=== PATIENT | male | born 1955 | race Caucasian/White ===

== ENCOUNTER 2017-02-06 09:21 | Emergency (ER) | payer BC, SELFPAY | END 2017-02-06 10:12 | disposition home or self-care (01) | PROVIDERS: Emergency Provider Nurse Practitioner Family; Family Provider Family Medicine; Visit Provider Nurse Practitioner Family | DX: J06.9 Acute upper respiratory infection, unspecified (principal) | CPT/HCPCS: 87804; 96372; 99201 ==

== ENCOUNTER 2017-03-04 19:40 | Emergency (ER) | payer BC, SELFPAY ==
[2017-03-04 19:52] VITALS: BP 165/102; PULSE 91; RESP 18; TEMP 36.9; O2SAT 97; BMI 34.9
--- NOTE | 2017-03-04 19:59 | HMH.EDUTC ---
[facility] Disposition Clinical Impression: Post-nasal drainage Disposition: Home, Self-Care Condition on Discharge: Good Instructions: DI for Cough -- Adult Additional Instructions: Take BP meds as prescribed Prescriptions: Fluticasone Propionate [Flonase Allergy Relief NS] 1 spray NS BID 10 Days #1 bot methylPREDNISolone [Medrol] 4 mg PO DIRECTED 6 Days #1 tab.ds.pk Benzonatate [Tessalon Perle 100mg Cap] 200 mg PO TIDP PRN 10 Days #30 cap PRN Reason: Cough Referrals: Bo Momin MD [Primary Care Provider] - Time of Disposition: 20:08 Medical Decision Making - Medical Records Medical records reviewed: Yes: I reviewed the patient's medical records. Vital Signs: 03/04/17 19:52 Temperature 98.4 F Temperature Source Temporal Artery Scan Pulse Rate [Brachial] 91 H Respiratory Rate 18 Blood Pressure [Right Arm] 165/102 Blood Pressure Mean [Right Arm] 123 Blood Pressure Source [Right Arm] Automatic Cuff Blood Pressure Position [Right Arm] Sitting 02 Sat by Pulse Oximetry 97 Oxygen Delivery Method Room Air - Ryan Inquiry Pt receiving controlled substance: No [facility] HPI - General Stated complaint: cough,cogestion Time Seen by Provider: 03/04/17 19:59 Mode of Arrival: Ambulatory Source of Information: Patient Limitations: No Limitations Description of Symptoms (Recalled from Triage Doc. by RN): COUGH AND CONGESTION SINCE 02/07/17 HEENT Symptoms (Recalled from RN notes): No Resp Symptoms (Recalled from RN notes): Yes Skin Symptoms (Recalled from RN notes): No MS Symptoms (Recalled from RN notes): No Functional Status (Recalled from RN notes): NA - History of Present Illness Provider Complaint: Patient has had cough for about 3 weeks. Has had steroid shot, antibiotics, Bromfed. Cough productive at times. No fever. Uses Cpap - increased humidity and that did seem to help a little. Mucinex hasn't done much. No vomiting. Has coughed so much that his ribs are sore. Onset (ago): week(s) (3) Location: chest Relieving factors: none Exacerbating factors: none Associated symptoms: cough, malaise Treatments prior to arrival: none - Related Data Home Medications Medication Instructions Recorded Confirmed Fenofibric Acid (Choline) 135 mg PO DAILY 01/19/18 01/19/18 [Fenofibric Acid] Perindopril Erbumine [Perindopril 8 mg PO DAILY 03/04/17 03/04/17 Erbumine] Simvastatin [Simvastatin] 40 mg PO DAILY 03/04/17 03/04/17 hydroCHLOROthiazide [HCTZ 25mg 25 mg PO DAILY 03/04/17 03/04/17 tab] Previous Rx's Medication Instructions Recorded Benzonatate [Tessalon Perle 100mg 200 mg PO TIDP PRN 10 Days #30 cap 03/04/17 Cap] Fluticasone Propionate [Flonase 1 spray NS BID 10 Days #1 bot 03/04/17 Allergy Relief NS] methylPREDNISolone [Medrol] 4 mg PO DIRECTED 6 Days #1 03/04/17 tab.ds.pk Allergies Allergy/AdvReac Type Severity Reaction Status Date / Time Penicillins [PENICILLINS] Allergy Mild Verified 03/04/17 19:54 Sulfa (Sulfonamide Allergy Mild Verified 03/04/17 19:54 Antibiotics) [SULFA (SULFONAMIDE ANTIBIOTICS)] - Worker's Comp Is this a Worker's Comp case?: No H History I have reviewed the patient's past medical history: Yes - *Social History Alcohol Intake: never - Psychiatric History Expresses thoughts of harming self/others: None Suicide Plan Description: No Plan ROS Obtained: Yes All systems reviewed & no additional complaints - Respiratory Respiratory: Yes cough Physical Exam - General General appearance: alert, in no apparent distress - Head Head exam: atraumatic, normocephalic, normal inspection - Eye Eye exam: Present: normal appearance, PERRL, EOMI - ENT ENT exam: Present: normal exam, normal oropharynx, mucous membranes moist, TM's normal bilaterally, normal external ear exam - Expanded ENT Exam Throat exam: Present: other (post nasal drip) - Neck Neck exam: Present: normal inspection, full ROM, trachea m
--- NOTE | 2017-03-04 20:05 | ED_ITS ---
[facility] Dis[place] Clinical Impression: Post-nasal drainage Disposition: Home, Self-Care Condition on Discharge: Good Instructions: DI for Cough -- Adult Additional Instructions: Take BP meds as prescribed Prescriptions: Fluticasone Propionate [Flonase Allergy Relief NS] 1 spray NS BID 10 Days #1 bot methylPREDNISolone [Medrol] 4 mg PO DIRECTED 6 Days #1 tab.ds.pk Benzonatate [Tessalon Perle 100mg Cap] 200 mg PO TIDP PRN 10 Days #30 cap PRN Reason: Cough Referrals: Bo Momin MD [Primary Care Provider] - Time of Disposition: 20:08 Medical Decision Making - Medical Records Medical records reviewed: Yes: I reviewed the patient's medical records. Vital Signs: 03/04/17 19:52 Temperature 98.4 F Temperature Source Temporal Artery Scan Pulse Rate [Brachial] 91 H Respiratory Rate 18 Blood Pressure [Right Arm] 165/102 Blood Pressure Mean [Right Arm] 123 Blood Pressure Source [Right Arm] Automatic Cuff Blood Pressure Position [Right Arm] Sitting 02 Sat by Pulse Oximetry 97 Oxygen Delivery Method Room Air - Ryan Inquiry Pt receiving controlled substance: No [facility] HPI - General Stated complaint: cough,cogestion Time Seen by Provider: 03/04/17 19:59 Mode of Arrival: Ambulatory Source of Information: Patient Limitations: No Limitations Description of Symptoms (Recalled from Triage Doc. by RN): COUGH AND CONGESTION SINCE 02/07/17 HEENT Symptoms (Recalled from RN notes): No Resp Symptoms (Recalled from RN notes): Yes Skin Symptoms (Recalled from RN notes): No MS Symptoms (Recalled from RN notes): No Functional Status (Recalled from RN notes): NA - History of Present Illness Provider Complaint: Patient has had cough for about 3 weeks. Has had steroid shot, antibiotics, Bromfed. Cough productive at times. No fever. Uses Cpap - increased humidity and that did seem to help a little. Mucinex hasn't done much. No vomiting. Has coughed so much that his ribs are sore. Onset (ago): week(s) (3) Location: chest Relieving factors: none Exacerbating factors: none Associated symptoms: cough, malaise Treatments prior to arrival: none - Related Data Home Medications Medication Instructions Recorded Confirmed Fenofibric Acid (Choline) 135 mg PO DAILY 01/19/18 01/19/18 [Fenofibric Acid] Perindopril Erbumine [Perindopril 8 mg PO DAILY 03/04/17 03/04/17 Erbumine] Simvastatin [Simvastatin] 40 mg PO DAILY 03/04/17 03/04/17 hydroCHLOROthiazide [HCTZ 25mg 25 mg PO DAILY 03/04/17 03/04/17 tab] Previous Rx's Medication Instructions Recorded Benzonatate [Tessalon Perle 100mg 200 mg PO TIDP PRN 10 Days #30 cap 03/04/17 Cap] Fluticasone Propionate [Flonase 1 spray NS BID 10 Days #1 bot 03/04/17 Allergy Relief NS] methylPREDNISolone [Medrol] 4 mg PO DIRECTED 6 Days #1 03/04/17 tab.ds.pk Allergies Allergy/AdvReac Type Severity Reaction Status Date / Time Penicillins [PENICILLINS] Allergy Mild Verified 03/04/17 19:54 Sulfa (Sulfonamide Allergy Mild Verified 03/04/17 19:54 Antibiotics) [SULFA (SULFONAMIDE ANTIBIOTICS)] - Worker's Comp Is this a Worker's Comp case?: No [facility] History I have reviewed the patient's past medical history: Yes - *Social History A
== END 2017-03-04 20:10 | disposition home or self-care (01) ==
PROVIDERS: Emergency Provider Physician Assistant; Family Provider Family Medicine; PCP Family Medicine
DX: R05 Cough (principal); R09.81 Nasal congestion; Z88.0 Allergy status to penicillin; Z88.2 Allergy status to sulfonamides
CPT/HCPCS: 99202

== ENCOUNTER 2017-11-28 15:30 | Outpatient (RCR) | payer BC, SELFPAY | END 2017-11-28 15:31 | disposition home or self-care (01) | LOC: PT 15:30 | PROVIDERS: Visit Provider Podiatrist Foot & Ankle Surgery | DX: M72.2 Plantar fascial fibromatosis (principal) | CPT/HCPCS: 97010; 97014; 97033; 97035; 97110; 97140; 97163; G0283 ==

== ENCOUNTER 2018-03-01 15:00 | Outpatient (RCR) | payer BC, SELFPAY | END 2018-03-01 15:05 | disposition home or self-care (01) | LOC: PT 15:00 | PROVIDERS: Visit Provider Podiatrist Foot & Ankle Surgery | DX: M72.2 Plantar fascial fibromatosis (principal) | CPT/HCPCS: 97014; 97016; 97110; 97112; 97140; 97163; G0283 ==

== ENCOUNTER 2019-12-18 13:15 | Emergency (ER) | payer BC, SELFPAY ==
[2019-12-18] VITALS (11 sets, daily range): BP systolic 113–152; BP diastolic 65–88; PULSE 61–76; RESP 17–18; TEMP 37.1; O2SAT 95–98; BMI 31.4
--- NOTE | 2019-12-18 13:23 | XR_ITS ---
PROCEDURE: XR CHEST AP CLINICAL HISTORY: fall COMPARISON: CR CXR CHEST(2 VIEWS-NOT PORTABLE) from 06/06/[address] CHEST W/ CONTRAST from 06/21/2013 FINDINGS: This is a somewhat poor inspiratory effort. The lung aragon appear grossly clear of infiltrate. There may be minimal atelectasis at the right base. Cardiac size is difficult to evaluate due to the portable supine position and poor inspiration but there likely is borderline cardiomegaly. There is no pulmonary congestion and there is no definite pleural fluid. There is an old healed fracture left lateral clavicle. IMPRESSION: No acute findings. Dictated by: Dr. Matthieu Bates MD 12/18/2019 14:05 Dr. Matthieu Bates MD in [place] 12/18/2019 14:05
--- NOTE | 2019-12-18 13:23 | XR_ITS ---
PROCEDURE: XR PELVIS 1-2V CLINICAL INDICATION: fall COMPARISON: No exams were available for comparison TECHNIQUE: XR Pelvis AP View FINDINGS: No fracture or dislocation is evident. No significant degenerative change, there is mild asymmetrical joint space narrowing of both hips. No lytic or blastic change. The SI joints and symphysis pubis appear normal. IMPRESSION: No acute findings. Dictated by: Dr. Matthieu Bates MD 12/18/2019 14:03 Dr. Matthieu Bates MD in [place] 12/18/2019 14:03
--- NOTE | 2019-12-18 13:28 | CT_ITS ---
PROCEDURE: CT LUMBAR SPINE WO CON CLINICAL HISTORY: trauma Fell off a ladder 4-5 feet COMPARISON: No exams were available for comparison TECHNIQUE: Axial images obtained with sagittal and coronal reformats. All CT scans at the facility use one or more dose reduction, viz: automated exposure control, ma/kV adjustment per patient size (including targeted exams where dose is matched to indication, i.e. head), or iterative reconstruction technique. FINDINGS: There is straightening of the normal curvature. There is a comminuted compression fracture of L1 with approximately 50 percent loss of height of the main fracture components. There is retropulsion of the compression fracture compromising the spinal canal by 40-50 percent. There is a vertical fracture through the lamina right-side of L1. The transverse processes appear intact through the entire lumbar spine. The SI joints are normal. All the remaining lumbar vertebrae appear intact. The spinal canal otherwise appears normal in size throughout. There is a mild diffuse disc bulge L5-S1 but there is abundant space and the spinal canal at this level. There is mild diffuse bulging of the annulus fibrosus at the L3-4 and L4-5 levels. The L2-3 disc appears normal. IMPRESSION: Acute comminuted compression fracture of L1 with retropulsion of the posterior fracture fragment compromising the spinal canal AP diameter approximately 40 to 50 percent. Dictated by: Dr. Matthieu Bates MD 12/18/2019 13:59 Dr. Matthieu Bates MD in [place] 12/18/2019 13:59
--- NOTE | 2019-12-18 13:28 | PC.NURSE ---
Patient's family educated on visitor policy at this time. State all three will be staying in the room no matter what.
--- NOTE | 2019-12-18 13:31 | HMH.EDBACK ---
ED Disposition Clinical Impression: Traumatic compression fracture of L1 lumbar vertebra Qualifiers: Encounter type: initial encounter Fracture type: closed Qualified Code(s): S32.010A - Wedge compression fracture of first lumbar vertebra, initial encounter for closed fracture Disposition: Xfer Critical Access Hosp Condition on Discharge: Fair Instructions: DI for Low Back Pain Referrals: Bo Momin MD [Primary Care Provider] - - Critical Care Critical Care Time: No Attestation: On 12/18/19, the high probability of a clinically significant, sudden or life threatening deterioration of the following system(s) required my full and direct attention, intervention and personal management. The time I documented below is in addition to time spent performing reported procedures but includes the following listed in this critical care notation. Medical Decision Making - Medical Records Medical records reviewed: Yes: I reviewed the patient's medical records. - Ryan Inquiry Pt receiving controlled substance: Yes Ryan was queried for this patient: No Reason not queried -: Emergent pt cond-no time Risks and benefits of using a controlled substance: were discussed with pt by me Vital Signs: 12/18/19 13:15 12/18/19 13:17 12/18/19 14:17 Pulse Rate [Right Brachial] 65 67 61 Respiratory Rate 18 17 Blood Pressure [Right Arm] 135/74 130/71 133/78 Blood Pressure Mean [Right Arm] 94 90 96 Blood Pressure Source [Right Arm] Automatic Cuff Automatic Cuff Automatic Cuff Blood Pressure Position [Right Arm] Sitting Sitting Sitting 02 Sat by Pulse Oximetry 96 98 95 Oxygen Delivery Method Room Air Room Air Room Air 12/18/19 14:30 12/18/19 15:00 12/18/19 15:31 Pulse Rate [Right Brachial] 66 74 65 Respiratory Rate 18 18 17 Blood Pressure [Right Arm] 127/68 123/74 139/82 Blood Pressure Mean [Right Arm] 87 90 101 Blood Pressure Source [Right Arm] Automatic Cuff Automatic Cuff Blood Pressure Position [Right Arm] Sitting Sitting 02 Sat by Pulse Oximetry 97 96 97 Oxygen Delivery Method Room Air Room Air Room Air - Lab Data Lab Results 12/18/19 14:58: WBC 12.8 H, RBC 5.53, Hgb 17.1, Hct 50.9, MCV 91.9, MCH 30.8, MCHC 33.5, RDW 14.0, Plt Count 262, MPV 7.4, Neut % (Auto) 82.4 H, Lymph % (Auto) 11.2, Wilkinson % (Auto) 5.4, Eos % (Auto) 0.8, Baso % (Auto) 0.3, Neut # (Auto) 10.6 H, Lymph # (Auto) 1.4, Wilkinson # (Auto) 0.7, Eos # (Auto) 0.1, Baso # (Auto) 0.0 12/18/19 14:58: PT 11.3, INR 1.02, APTT 24.0 12/18/19 14:58: Sodium 137, Potassium 4.2, Chloride 101, Carbon Dioxide 30, Anion Gap 10.2, BUN 18, Creatinine 0.90, Estimated Creat Clear 102, Estimated GFR 86, Est GFR ( Amer) 103, Glucose 99, Calcium 9.5, Total Bilirubin 0.5, AST 43, ALT 36, Alkaline Phosphatase 69, Total Protein 7.1, Albumin 4.4, Globulin 2.7, Albumin/Globulin Ratio 1.6 Result diagrams: 12/18/19 14:58 12/18/19 14:58 Orders (Tests/Meds): ED MEDICATIONS Discontinued Medications Generic Name Dose Route Start Last Admin Trade Name Freq PRN Reason Stop Dose Admin Hydrocodone Bitart/Acetaminophen 1 tab 12/18/19 13:29 12/18/19 13:32 Hydrocodone 10mg/Apap 325mg Tab PO 12/18/19 13:30 1 tab ONCE ONE Administration Hydromorphone HCl 1 mg 12/18/19 15:38 12/18/19 15:43 Hydromorphone 2mg/Ml Syringe IV 12/18/19 15:39 1 mg ONCE ONE Administration Morphine Sulfate 4 mg 12/18/19 14:35 12/18/19 14:43 Morphine 4mg/Ml Syringe IV 12/18/19 14:36 4 mg ONCE ONE Administration - Radiology Data #1 Image(s): Chest, Pelvis Image Reviewed: Yes I reviewed the patient's radiology results, Yes I reviewed the patient's radiology image, Yes I have reviewed radiologist's interpretation Preliminary Findings: Normal/NAD, No Fracture Seen - CT Data CT Scan: T-Spine, L-Spine Time Received: 15:[address] Reviewed: Yes: I have reviewed the patient's CT results, I have viewed the radiologist's interpretation Findings Narrative: IMPRESSION:
--- NOTE | 2019-12-18 13:45 | CT_ITS ---
PROCEDURE: CT THORACIC SPINE WO CON CLINICAL HISTORY: pain from fall. Fell off a ladder 4-5 feet COMPARISON: No exams were available for comparison TECHNIQUE: Axial images obtained with sagittal and coronal reformats. All CT scans at the facility use one or more dose reduction, viz: automated exposure control, ma/kV adjustment per patient size (including targeted exams where dose is matched to indication, i.e. head), or iterative reconstruction technique. FINDINGS: There is mild diffuse dextroscoliotic curvature of the thoracic spine. All thoracic vertebrae appear intact. 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 There is no paraspinal mass. The spinal canal is normal in size throughout. IMPRESSION: Mild diffuse dextroscoliotic curvature along with congenital fusion of T6 and T7, no acute compression fracture identified Dictated by: Dr. Matthieu Bates MD 12/18/2019 14:02 Dr. Matthieu Bates MD in [place] 12/18/2019 14:02
--- NOTE | 2019-12-18 13:57 | PC.NURSE ---
Patient taken to radiology.
--- NOTE | 2019-12-18 13:58 | PC.NURSE ---
Patient returned from radiology.
[2019-12-18 15:07] LABS: Basophils % 0.3 % (0.1-2.0); Eosinophils # 0.1 K/mm3 (0.0-0.4); Eosinophils % 0.8 % (0.1-12.0); Hematocrit 50.9 % (42.0-52.0); Hemoglobin 17.1 g/dL (14.1-18.0); Lymphocytes # 1.4 K/mm3 (0.7-4.5); Lymphocytes % 11.2 % (10-50); Mean Corpuscular HGB Conc 33.5 g/dL (31.8-35.4); Mean Corpuscular Hemoglobin 30.8 pg (27.0-31.2); Mean Corpuscular Volume 91.9 fl (80-94); Mean Platelet Volume 7.4 fl (7.4-10.4); Monocytes # 0.7 K/mm3 (0.1-1.0); Monocytes % 5.4 % (1.7-9.3); Neutrophils # 10.6 K/mm3 (1.8-7.8); Neutrophils % 82.4 % (37.0-80.0); Platelet Count 262 K/mm3 (142-424); Red Blood Count 5.53 M/mm3 (4.60-6.20); White Blood Count 12.8 K/mm3 (4.8-10.8)
[2019-12-18 15:09] LABS: Chloride 101 mmol/L (98-107); Sodium 137 mmol/L (136-145)
--- NOTE | 2019-12-18 15:09 | PC.NURSE ---
Call placed to [facility]. Awaiting a return call.
[2019-12-18 15:10] LABS: Potassium 4.2 mmoL/L (3.5-5.1)
[2019-12-18 15:12] LABS: Alanine Aminotransferase 36 U/L (12-78); Albumin Level 4.4 g/dl (3.5-5.0); Albumin/Globulin Ratio 1.6 (1.1-1.8); Alkaline Phosphatase 69 U/L (38-126); Anion Gap 10.2 mEq/L (5-15); Aspartate Amino Transferase 43 U/L (17-59); Bilirubin,Total 0.5 mg/dl (0.2-1.3); Blood Urea Nitrogen 18 mg/dl (9-20); Carbon Dioxide 30 mmol/L (22.0-30.0); Creatinine Clearance Estimated 102 mL/min (50-200); Estimated Glomerular Filt Rate 86 ml/min (>60); GFR (African American) 103 ML/MIN (>60); Globulin 2.7 g/dL (1.3-3.2); Total Protein,Serum 7.1 g/dl (6.3-8.2)
[2019-12-18 15:13] LABS: Calcium 9.5 mg/dl (8.4-10.2); Glucose 99 mg/dl (74-100)
[2019-12-18 15:32] LABS: INR 1.02 (0.9-1.1); Prothrombin Time 11.3 seconds (9.4-11.8)
--- NOTE | 2019-12-18 15:36 | PC.NURSE ---
[facility] pt
--- NOTE | 2019-12-18 16:41 | PC.NURSE ---
FACE SHEET FAXED, [facility] ADVISES THAT THEY HAVE 2 DISCHARGES ON THE ORTHO FLOOR THEY WILL CALL BACK WITH BED ASSIGNMENT
== END 2019-12-18 19:15 | disposition critical access hospital (66) ==
PROVIDERS: Emergency Provider Emergency Medicine; PCP Family Medicine
DX: S32.010A Wedge compression fracture of first lumbar vertebra, initial encounter for closed fracture (principal); S50.812A Abrasion of left forearm, initial encounter; W11.XXXA Fall on and from ladder, initial encounter; Y92.019 Unspecified place in single-family (private) house as the place of occurrence of the external cause; E78.5 Hyperlipidemia, unspecified; Z79.899 Other long term (current) drug therapy
CPT/HCPCS: 71045; 72128; 72131; 72170; 80053; 85025; 85610; 85730; 96372; 99284

== ENCOUNTER 2020-02-14 14:00 | Outpatient (RCR) | payer BC, SELFPAY | END 2020-02-14 14:05 | disposition home or self-care (01) | LOC: PT 14:00 | PROVIDERS: PCP Family Medicine; Visit Provider Neurological Surgery | DX: M54.5 Low back pain (principal) | CPT/HCPCS: 97010; 97014; 97110; 97163; 97164; G0283 ==

== ENCOUNTER → 2022-02-09 10:49 | Outpatient (CLI) | payer BC, SELFPAY ==
--- NOTE | 2022-02-09 | CA_ITS ---
APPROVED REPORT Exam: Exercise Treadmill Technologist: Kaylyn Edwards Ht: 5 ft 8 in Wt: 220 lbs BSA: 2.13 m2 HR: 70 bpm BP: 150/98 mmHg Indications: Abn EKG Medical History Medications: Simvastatin,,,,, HCTZ,,,,, PERINDOPRIL,,,,, CetIRIZINE,,,,, DOcusate Sodium,,,,, FeNOfibric Acid,,,,, Stress Test Details Test: Tip HR Resting HR: 69 bpm Max Heart Rate (APMHR): 156.660475 bpm Max HR Achieved: 145 bpm Target HR (85% APMHR): 132.225447 bpm % of APMHR: 92.95 Recovery HR: 94 bpm BP Resting BP: 150.0/98.0 mmHg Max BP: 220.0/90.0 mmHg Recovery BP: 176.0/95.0 mmHg ECG Resting ECG: Normal sinus rhythm Clinical Exercise duration: 10:30 min Highest Stage Achieved: Exercise capacity: 12.8 METs Stress ECG Conclusion Patient exercised 10:30 into stage IV of Tip Protocol. Test stopped due to shortness of air, fatigue. Symptoms: No chest pain. Arrhythmias/Ectopy: Occasional PVC ST- T Changes: Allowing for motion artifact, the ST response to exercise is within normal. Conclusion: Normal GXT. Myoview images reported separately. Test Summary REST . . . . . . . Sitting REST . . . . . . . Standing REST 05:54 0.0 0.0 69 . 150/ 98 . . Stage 1 01:00 10.0 1.7 91 . . . . Stage 1 02:00 10.0 1.7 93 . . . . Stage 1 03:00 10.0 1.7 99 . 214/ 96 . . Stage 2 01:00 12.0 2.5 103 . . . . Stage 2 02:00 12.0 2.5 103 . . . . Stage 2 03:00 12.0 2.5 110 . 216/ 98 . . Stage 3 01:00 14.0 3.4 118 . . . . Stage 3 02:00 14.0 3.4 120 . . . . Stage 3 03:00 14.0 3.4 125 . 220/ 90 . . Stage 4 . . . . . . . Myoview Injected Stage 4 01:00 16.0 4.2 141 . . . . Stage 4 01:30 16.0 4.2 145 . . . Stop exercise at 10:30 RECOVERY 01:00 0.0 0.0 130 . . . . RECOVERY 02:00 0.0 0.0 108 . . . . RECOVERY 03:00 0.0 0.0 102 . 196/ 97 . . RECOVERY 04:00 0.0 0.0 99 . 185/ 95 . . RECOVERY 05:00 0.0 0.0 95 . 185/ 95 . . RECOVERY 06:00 0.0 0.0 93 . 183/ 94 . . RECOVERY 07:00 0.0 0.0 96 . 176/ 95 . . RECOVERY 08:00 0.0 0.0 93 . 176/ 95 . . RECOVERY 08:52 0.0 0.0 93 . 146/ 84 . . Electronically signed by : Chapin Canchola MD 02/09/2022 15:55:51
--- NOTE | 2022-02-09 10:49 | NM_ITS ---
APPROVED REPORT Exam: Nuclear Stress Test Indication: Abnormal EKG, SOB on exertion, HTN, High cholesterol, Family history Patient Location: Outpatient Stress Tech: Kaylyn Edwards [place] Tech:Dulce Bingham, ARRT, RT (R)(N) Ht: 5 ft 8 in Wt: 220 lbs HR: 69 bpm BP: 150/98 mmHg BSA: 2.13 m2 TID: 0.79 BMI: 33.4 History: Abnormal EKG, SOB on exertion, HTN, High cholesterol, Family history Procedure: Patient exercised on Tip protocol 10:30 minutes and sec, resting heart rate 69 bpm, resting blood pressure 150/98 mmHg, with exercise maximum heart rate achived was 145 bpm which is 93 % of the maximum predicted heart rate and blood pressure was 220/90 mmHg. Test was stopped due to SOB. Patient denied any complaint of chest pain. Patient has Good exercise capacity, achieved 12.8 METs of workload on treadmill, the blood pressure response to exercise was Hypertensive. Electrocardiogram Resting electrocardiogram shows sinus rhythm, with exercise there is less than 1.[address] segment depression noted from the baseline EKG. The EKG portion of the exercise Myoview is negative for ischemia. Cardiac Stress and Resting SPECT Images: Cardiac Stress and Resting SPECT images were obtained using technetium 99m Myoview 32.3 mCi stress and 10.84 mCi at rest. Gated SPECT for analysis of segmental wall motion and calculation of the ejection fraction also done. Prone images were also obtained. Cardiac prone images show uniform myocardial activity without segmental perfusion abnormality, computer derived ejection fraction is 59% with no regional wall motion abnormality, right ventricle is normal size and contractility. Conclusion: 1. The EKG portion of the exercise Myoview is negative for ischemia, patient has good exercise capacity achieved 12.8 METs of workload on treadmill, the blood pressure response to exercise hypertensive, there was no exercise-induced chest discomfort. 2. No scintigraphic evidence of reversible ischemia seen at this level of exercise, computer derived ejection fraction is 59% with no regional wall motion abnormality, right ventricle is normal size and contractility. 3. Normal exercise Myoview study except for hypertensive blood pressure response to exercise. Electronically signed by : Chapin Canchola MD 02/09/2022 16:00:53
--- NOTE | 2022-02-09 12:26 | CA_ITS ---
APPROVED REPORT EXAM: Comprehensive 2D, Doppler, and color-flow Echocardiogram Tool Marker: Isabella Landaverde CRT Ht: 5 ft 8 in Wt: 227lbs BSA: 2.16 BP: 159/84 mmHg Indications: Abnormal ECG, Shortness of Breath, tde 2D Dimensions LVOT 2.01 cm (M/F) 1.5-2.5 LA Volume 51.30 mL LA Volume Index 23.20 mL/m2 (M/F) 16-34 M-Mode Dimensions RVDd 2.65 cm (0.9-2.6) LA Diam 4.38 cm (1.9-4.0) LVDd 5.18 cm (3.5-5.7) Ao Diam 4.06 cm (2.0-3.7) LVDs 2.95 cm (3.5-5.7) IVSd 1.71 cm (0.6-1.1) PWd 0.94 cm (0.6-1.1) EF (Teich) 73.80% FS 43.10% EDV (Teich) 128.40 mL TAPSE 1.44 (<1.7) ESV (Teich) 33.60 mL LV Diastology E Decel Time 283.00 (160-240 msec) E/A Ratio 0.69 MED E' 5.60 (< 7 cm/sec) MED A' 8.40 cm/s E'/MED E' Ratio 10.25 (>14) LAT E' 11.10 (<10 cm/sec) LAT A' 15.30 cm/s E/LAT E' Ratio 5.17 (>14) Aortic Valve AO Peak GR. 10.00 mmHg Mitral Valve MV A Velocity 83.00 (40-130 cm/s) E/A Ratio 0.69 MV Decel. Time 283.00 (160-240 ms) Pulmonary Valve PV Peak Velocity 135.00 (50-150 cm/s) Left Ventricle Technically difficult study because of the patient factors and poor acoustic windows. Left atrium is mildly enlarged, left ventricle is normal size mild concentric left ventricular hypertrophy, estimated ejection fraction 55% with no regional wall motion abnormality, grade 1 diastolic dysfunction seen without tissue Doppler evidence of raise left atrial pressure. Right Ventricle Right atrium and right ventricle are mildly enlarged with normal contractility. Aortic Valve Aortic valve is minimally thickened and fibrosed there is no aortic stenosis or aortic insufficiency. Mitral Valve Mitral valve is grossly normal, there is trace mitral regurgitation. Tricuspid Valve Tricuspid grossly normal, there is trace tricuspid regurgitation, tricuspid regurgitation jet velocity is inadequate for calculation of the right ventricular systolic pressure. Pulmonic Valve Pulmonic valve is poorly visualized. Great Vessels Aortic root is normal size. Inferior vena cava is poorly visualized. Pericardium No significant pericardial effusion noted. Conclusion 1. Mild biatrial enlargement, normal left ventricular size, estimated ejection fraction 55% with no regional wall motion abnormality, grade 1 diastolic dysfunction seen without tissue Doppler evidence of raise left atrial pressure. 2. Mildly enlarged right ventricle with normal contractility. 3. Trace mitral and tricuspid regurgitation. 4. No significant pericardial effusion noted. 5. Inferior vena cava is poorly visualized. Electronically signed by : Chapin Canchola MD 02/09/2022 17:01:29
--- NOTE | 2022-02-09 12:43 | HMH.ITSHM ---
Current Home Medications as stated by this patient Iglesia Hopkins or branch sales and service representative. []SIMVASTATIN PERINDOPRIL HCTZ FENOFIBRIC ACID DOCUSATE CETIRIZINE
== END ==
PROVIDERS: PCP Family Medicine; Visit Provider Nurse Practitioner
DX: R06.00 Dyspnea, unspecified (principal); R94.31 Abnormal electrocardiogram [ECG] [EKG]
CPT/HCPCS: 78452; 93017; 93306; A9502

== ENCOUNTER → 2022-09-22 07:05 | Outpatient (CLI) | payer MEDICARE, OTHER, SELFPAY ==
[2022-09-22 07:48] LABS: Basophils % 0.5 % (0.1-2.0); Eosinophils # 0.3 K/mm3 (0.0-0.4); Eosinophils % 5.3 % (0.1-12.0); Hematocrit 47.6 % (42.0-52.0); Hemoglobin 15.3 g/dL (14.1-18.0); Lymphocytes # 2.3 K/mm3 (0.7-4.5); Lymphocytes % 36.1 % (10-50); Mean Corpuscular HGB Conc 32.2 g/dL (31.8-35.4); Mean Corpuscular Hemoglobin 29.9 pg (27.0-31.2); Mean Corpuscular Volume 93.1 fl (80-94); Mean Platelet Volume 7.6 fl (7.4-10.4); Monocytes # 0.5 K/mm3 (0.1-1.0); Monocytes % 7.6 % (1.7-9.3); Neutrophils # 3.2 K/mm3 (1.8-7.8); Neutrophils % 50.5 % (37.0-80.0); Platelet Count 249 K/mm3 (142-424); Red Blood Count 5.12 M/mm3 (4.60-6.20); Red Cell Distribution Width 14.1 % (11.5-17.5); White Blood Count 6.4 K/mm3 (4.8-10.8)
[2022-09-22 08:13] LABS: Alanine Aminotransferase 28 U/L (12-78); Albumin Level 4.1 g/dl (3.5-5.0); Alkaline Phosphatase 83 U/L (38-126); Anion Gap 11.4 mEq/L (5-15); Aspartate Amino Transferase 27 U/L (17-59); Bilirubin,Indirect 0.3 mg/dL (0.0-0.9); Bilirubin,Total 0.3 mg/dl (0.2-1.3); Bilirubin,Unconjugated 0.5 mg/dL (0.0-1.1); Blood Urea Nitrogen 15 mg/dl (9-20); Calcium 9.4 mg/dl (8.4-10.2); Carbon Dioxide 29 mmol/L (22.0-30.0); Chloride 105 mmol/L (98-107); Chol/HDL Ratio 4.7 (1-3.5); Cholesterol 179 mg/dl (140-200); Estimated Glomerular Filt Rate 97 ml/min (>60); GFR (African American) 117 ML/MIN (>60); Glucose 116 mg/dl (74-100); HDL Cholesterol 38 mg/dl (40-60); Magnesium 1.8 mg/dl (1.6-2.3); Potassium 4.4 mmoL/L (3.5-5.1); Sodium 141 mmol/L (136-145); Total Protein,Serum 6.4 g/dl (6.3-8.2); Triglycerides 203 mg/dl (30-150); VLDL Cholesterol 41 mg/dL (0-40)
[2022-09-22 08:24] LABS: Direct LDL Cholesterol 110.53 mg/dL (100-129)
[2022-09-22 08:30] LABS: Free T4 (Free Thyroxine) 0.92 ng/dl (0.78-2.19)
[2022-09-22 08:44] LABS: Thyroid Stimulating Hormone 4.79 uIU/mL (0.465-4.68)
== END ==
PROVIDERS: PCP Family Medicine; Visit Provider Internal Medicine
DX: E78.5 Hyperlipidemia, unspecified (principal); I51.89 Other ill-defined heart diseases; R06.00 Dyspnea, unspecified; R94.31 Abnormal electrocardiogram [ECG] [EKG]; R06.09 Other forms of dyspnea
CPT/HCPCS: 36415; 80048; 80061; 80076; 83735; 84439; 84443; 85025

== ENCOUNTER 2023-03-24 10:46 | Outpatient (CLI) | payer MEDICARE, OTHER, SELFPAY ==
[2023-03-24 11:44] LABS: Basophils % 0.3 % (0.1-2.0); Eosinophils # 0.2 K/mm3 (0.0-0.4); Eosinophils % 2.5 % (0.1-12.0); Hematocrit 45.7 % (42.0-52.0); Hemoglobin 15.3 g/dL (14.1-18.0); Lymphocytes # 1.8 K/mm3 (0.7-4.5); Lymphocytes % 28.4 % (10-50); Mean Corpuscular HGB Conc 33.5 g/dL (31.8-35.4); Mean Corpuscular Hemoglobin 30.2 pg (27.0-31.2); Mean Corpuscular Volume 90.2 fl (80-94); Mean Platelet Volume 6.8 fl (7.4-10.4); Monocytes # 0.5 K/mm3 (0.1-1.0); Neutrophils % 61.8 % (37.0-80.0); Platelet Count 248 K/mm3 (142-424); Red Blood Count 5.06 M/mm3 (4.60-6.20); Red Cell Distribution Width 14.3 % (11.5-17.5); White Blood Count 6.4 K/mm3 (4.8-10.8)
[2023-03-24 11:51] LABS: Alanine Aminotransferase 32 U/L (12-78); Albumin Level 4.2 g/dl (3.5-5.0); Alkaline Phosphatase 78 U/L (38-126); Anion Gap 11.9 mEq/L (5-15); Aspartate Amino Transferase 29 U/L (17-59); Bilirubin,Direct 0.2 mg/dl (0.0-0.4); Bilirubin,Indirect 0.3 mg/dL (0.0-0.9); Bilirubin,Total 0.5 mg/dl (0.2-1.3); Bilirubin,Unconjugated 0.3 mg/dL (0.0-1.1); Blood Urea Nitrogen 15 mg/dl (9-20); Calcium 9.5 mg/dl (8.4-10.2); Carbon Dioxide 25 mmol/L (22.0-30.0); Chloride 106 mmol/L (98-107); Cholesterol 186 mg/dl (140-200); Estimated Glomerular Filt Rate 97 ml/min (>60); GFR (African American) 117 ML/MIN (>60); Glucose 159 mg/dl (74-100); HDL Cholesterol 37 mg/dl (40-60); Potassium 3.9 mmoL/L (3.5-5.1); Sodium 139 mmol/L (136-145); Total Protein,Serum 6.5 g/dl (6.3-8.2); Triglycerides 155 mg/dl (30-150); VLDL Cholesterol 31 mg/dL (0-40)
[2023-03-24 12:02] LABS: Direct LDL Cholesterol 116.96 mg/dL (100-129)
[2023-03-24 12:09] LABS: Free T4 (Free Thyroxine) 1.07 ng/dl (0.78-2.19)
[2023-03-24 12:21] LABS: Thyroid Stimulating Hormone 1.88 uIU/mL (0.465-4.68)
== END 2023-03-24 23:59 ==
LOC: LAB 10:47
PROVIDERS: PCP Nurse Practitioner Family; Visit Provider Internal Medicine
DX: I11.9 Hypertensive heart disease without heart failure; R94.31 Abnormal electrocardiogram [ECG] [EKG]; R06.00 Dyspnea, unspecified
CPT/HCPCS: 36415; 80048; 80061; 80076; 84439; 84443; 85025

== ENCOUNTER 2023-04-14 08:44 | Outpatient (CLI) | payer MEDICARE, OTHER, SELFPAY ==
--- NOTE | 2023-04-14 08:51 | MR_ITS ---
FINAL REPORT TECHNIQUE: Multiplanar and multisequence imaging of the right knee was obtained without contrast. CLINICAL HISTORY: right knee pain COMPARISON: None FINDINGS: Bones: There is no acute fracture or marrow edema. There is no pathologic marrow replacement. The joint space is preserved. There are no full thickness cartilage defects. Menisci: There is an oblique tear of the anterior horn of the lateral meniscus and a separate oblique tear of the posterior horns. There is a complex tear of the posterior horn of the medial meniscus with both a vertical and oblique component. Ligaments: There is abnormal signal intensity in the anterior cruciate ligament and partial tear is not excluded. The posterior cruciate ligament is intact. The collateral ligaments are intact. There is a cystic lesion along the medial knee between the superficial and deep fibers of the medial collateral ligament favored to represent a parameniscal cyst associated with a tear of the posterior horn. Tendons/Muscles: The quadriceps and patellar tendons are within normal limits. The biceps femoris tendon and iliotibial tract are intact. The popliteus tendon is normal. Other: There is a small joint effusion. Remaining soft tissues are normal. IMPRESSION: Tears of both the anterior and posterior horns of the lateral meniscus. Complex tear posterior horn medial meniscus with parameniscal cyst extending into the medial knee between the superficial and deep fibers of the medial collateral ligament. Possible partial anterior cruciate ligament tear. Reviewed, Interpreted and Dictated by Beatrice Jimenez MD Transcribed by Pam Jacques Authenticated and [facility]
== END 2023-04-14 23:59 ==
LOC: RAD 08:44
PROVIDERS: PCP Internal Medicine; Visit Provider Physician Assistant
DX: M25.561 Pain in right knee (principal)
CPT/HCPCS: 73721

== ENCOUNTER 2023-04-26 15:28 | Outpatient (CLI) | payer MEDICARE, OTHER, SELFPAY ==
[2023-04-26 16:07] LABS: Chloride 106 mmol/L (98-107); Sodium 139 mmol/L (136-145)
[2023-04-26 16:08] LABS: Potassium 3.6 mmoL/L (3.5-5.1)
[2023-04-26 16:10] LABS: Alanine Aminotransferase 37 U/L (12-78); Alkaline Phosphatase 82 U/L (38-126); Aspartate Amino Transferase 35 U/L (17-59); Bilirubin,Total 0.3 mg/dl (0.2-1.3); Blood Urea Nitrogen 16 mg/dl (9-20); Estimated Glomerular Filt Rate 113 ml/min (>60); GFR (African American) 137 ML/MIN (>60)
[2023-04-26 16:11] LABS: Albumin Level 4.1 g/dl (3.5-5.0); Albumin/Globulin Ratio 1.7 (1.1-1.8); Anion Gap 8.6 mEq/L (5-15); Calcium 9.5 mg/dl (8.4-10.2); Carbon Dioxide 28 mmol/L (22.0-30.0); Globulin 2.4 g/dL (1.3-3.2); Glucose 105 mg/dl (74-100); Total Protein,Serum 6.5 g/dl (6.3-8.2)
== END 2023-04-26 23:59 ==
PROVIDERS: PCP Nurse Practitioner Family; Visit Provider Nurse Practitioner Family
DX: B35.1 Tinea unguium (principal)
CPT/HCPCS: 36415; 80053

== ENCOUNTER 2023-06-16 10:00 | Outpatient (RCR) | payer MEDICARE, OTHER, SELFPAY | END 2023-06-16 11:10 | disposition home or self-care (01) | LOC: PT 10:00 | PROVIDERS: Visit Provider Orthopaedic Surgery | DX: M25.561 Pain in right knee (principal) | CPT/HCPCS: 97010; 97014; 97016; 97110; 97163; 97530; G0283 ==

== ENCOUNTER 2023-10-11 09:06 | Outpatient (CLI) | payer MEDICARE, OTHER, SELFPAY ==
[2023-10-11 14:00] LABS: Basophils # 0.1 K/mm3 (0-0.2); Basophils % 0.6 % (0.1-2.0); Eosinophils # 0.3 K/mm3 (0.0-0.4); Eosinophils % 3.3 % (0.1-12.0); Hematocrit 45.5 % (42.0-52.0); Lymphocytes # 1.8 K/mm3 (0.7-4.5); Mean Corpuscular HGB Conc 32.8 g/dL (31.8-35.4); Mean Corpuscular Hemoglobin 30.9 pg (27.0-31.2); Mean Corpuscular Volume 94.2 fl (80-94); Mean Platelet Volume 9.3 fl (7.4-10.4); Monocytes # 0.6 K/mm3 (0.1-1.0); Monocytes % 7.6 % (1.7-9.3); Neutrophils % 65.6 % (37.0-80.0); Platelet Count 309 K/mm3 (142-424); Red Blood Count 4.84 M/mm3 (4.60-6.20); Red Cell Distribution Width 14.4 % (11.5-17.5); White Blood Count 7.6 K/mm3 (4.8-10.8)
[2023-10-11 14:14] LABS: Alanine Aminotransferase 30 U/L (12-78); Albumin Level 4.2 g/dl (3.5-5.0); Albumin/Globulin Ratio 1.5 (1.1-1.8); Alkaline Phosphatase 98 U/L (38-126); Aspartate Amino Transferase 31 U/L (17-59); Bilirubin,Total 0.7 mg/dl (0.2-1.3); Blood Urea Nitrogen 15 mg/dl (9-20); Calcium 9.6 mg/dl (8.4-10.2); Carbon Dioxide 24 mmol/L (22.0-30.0); Chloride 104 mmol/L (98-107); Chol/HDL Ratio 5.3 (1-3.5); Cholesterol 206 mg/dl (140-200); Estimated Glomerular Filt Rate 113 ml/min (>60); GFR (African American) 137 ML/MIN (>60); Globulin 2.8 g/dL (1.3-3.2); Glucose 135 mg/dl (74-100); HDL Cholesterol 39 mg/dl (40-60); Sodium 138 mmol/L (136-145); Triglycerides 224 mg/dl (30-150); VLDL Cholesterol 45 mg/dL (0-40)
[2023-10-11 14:26] LABS: Direct LDL Cholesterol 134.41 mg/dL (100-129)
[2023-10-11 14:45] LABS: Prostate Specific Ag Screen 1.1 ng/ml (0.0-4.0); Thyroid Stimulating Hormone 2.65 uIU/mL (0.465-4.68)
== END 2023-10-11 23:59 | disposition home or self-care (01) ==
LOC: LAB.DROPOF 10-12 12:11
PROVIDERS: PCP Nurse Practitioner Family; Visit Provider Nurse Practitioner Family
DX: I10 Essential (primary) hypertension (principal); Z00.00 Encounter for general adult medical examination without abnormal findings; Z12.5 Encounter for screening for malignant neoplasm of prostate; E78.1 Pure hyperglyceridemia
CPT/HCPCS: 80053; 80061; 84443; 85025; G0103

== ENCOUNTER 2023-12-05 13:34 | Outpatient (CLI) | payer MEDICARE, OTHER, SELFPAY ==
[2023-12-05 14:33] LABS: Anion Gap 10.8 mEq/L (5-15); Blood Urea Nitrogen 17 mg/dl (9-20); Calcium 9.4 mg/dl (8.4-10.2); Carbon Dioxide 26 mmol/L (22.0-30.0); Chloride 103 mmol/L (98-107); Estimated Glomerular Filt Rate 97 ml/min (>60); GFR (African American) 117 ML/MIN (>60); Glucose 205 mg/dl (74-100); Potassium 3.8 mmoL/L (3.5-5.1); Sodium 136 mmol/L (136-145)
== END 2023-12-05 23:59 | disposition home or self-care (01) ==
LOC: LAB 13:35
PROVIDERS: PCP Internal Medicine; Visit Provider Internal Medicine
DX: I10 Essential (primary) hypertension (principal)
CPT/HCPCS: 36415; 80048

== ENCOUNTER 2024-02-10 09:35 | Emergency (ER) | payer MEDICARE, OTHER, SELFPAY ==
[2024-02-10 11:35] VITALS: BP 143/87; PULSE 76; RESP 19; TEMP 36.9; O2SAT 100; BMI 33.1
--- NOTE | 2024-02-10 11:47 | EXP.UTC ---
Discharge Plan Disposition Patient Disposition: Home, Self-Care Condition: Good Prescriptions Prescriptions: New oseltamivir [Tamiflu] 75 mg capsule 75 mg PO BID 5 Days Qty: 10 0RF No Action Zyrtec 10 mg capsule 10 mg PO DAILY docusate sodium 100 mg tablet See Rx Instructions PO DAILY Rx Instructions: 50 mg orally daily; omega 2-puf-ugv-fish oil [Fish Oil] 300-1,000 mg capsule 1 cap PO DAILY ciclopirox 8 % solution 1 applic topical DAILY PRN terbinafine HCl 250 mg tablet 250 mg PO DAILY PRN aspirin 81 mg tablet 81 mg PO DAILY clotrimazole-betamethasone 1-0.05 % cream 1 applic topical BID 14 Days Qty: 45 2RF losartan 100 mg tablet 100 mg PO DAILY 90 Days Qty: 90 2RF nifedipine 30 mg tablet extended release 30 mg PO DAILY Qty: 90 3RF gemfibrozil [Lopid] 600 mg tablet 600 mg PO BID 90 Days Qty: 180 3RF simvastatin 40 mg tablet 40 mg PO DAILY 90 Days Qty: 90 3RF hydrochlorothiazide 50 mg tablet 50 mg PO DAILY Qty: 90 3RF Referrals Follow up/Referrals: Jcarlos Giang DO [Primary Care Provider] - See instructions Activity Restrictions/Add. Instructions Additional Instructions/Restrictions: Start Tamiflu today if you are going to take it. Discussed risk and possible benefits. Lots of rest Increase Fluids water, Gatorade, powerade, pedialyte,if infant/toddler/child Alternate Tylenol and / or ibuprofen as discussed for fever, aches, chills Follow up IMMEDIATELY with your family doctor for new or worsening Symptoms OR no noticeable improvement over the next 48-72 hours, 911 for difficulty or breathing You or your child area contagious until no fever, aches, chills for 24 hours with medication for symptoms Help Prevent the spread of influenza: ?Wash your hands often. Use soap and water. Wash your hands after you use the bathroom, change a child's diapers, or sneeze. Wash your hands before you prepare or eat food. Use gel hand cleanser that has 60% alcohol, when soap and water are not available. Do not touch your eyes, nose, or mouth unless you have washed your hands first. Cover your mouth when you sneeze or cough. Cough into a tissue or the bend of your arm. If you use a tissue, throw it away immediately and wash your hands. Clean shared items with a germ-killing machine rug cleaner. Clean table surfaces, doorknobs, and light switches. Do not share towels, silverware, and dishes with people who are sick. Wash bed sheets, towels, silverware, and dishes with soap and water. Wear a mask over your mouth and nose if you are sick. The face mask may help protect others from becoming infected with the flu. Wear the mask when in common areas of your home or if you seek care with a healthcare provider. Stay away from others if you are sick. Stay at home until 24 hours after your fever and symptoms are gone. Clinical Impressions Clinical Impression: Influenza Instructions Patient Instructions: DI for Influenza -- Adult, Oseltamivir Print Language Print Language: Setswana Discharge ED Provider: Adry Stanley [facility] HPI General Stated complaint: fever, cough, sinus congestion, Time Seen by Provider: 02/10/24 11:47 History of Present Illness Provider Complaint: Patient states that he has been having sinus pain and pressure, fever, chills headache scratchy throat and over all not feeling well States today he wasnt feeling any better so he came in to get checked Related Data Home Medications ?Medication ?Instructions ?Recorded ?Confirmed aspirin 81 mg tablet 81 mg PO DAILY 09/21/22 10/12/23 cetirizine 10 mg capsule (Zyrtec) 10 mg PO DAILY 10/20/22 10/12/23 omega 5-luy-xqf-fish oil 300 1 cap PO DAILY 10/20/22 10/12/23 mg-1,000 mg capsule (Fish Oil) docusate sodium 100 mg tablet See Rx Instructions PO DAILY 03/11/23 10/12/23 ciclopirox 8 % topical solution 1 applic topical DAILY PRN 10/11/23 10/12/23 terbinafine HCl 250 mg tablet 250 mg PO DAILY PRN 10/11/23 10/12/23 Previous Rx's ?Medication ?Instructions ?Recorded clotrimazole-betamethasone 1 1 applic topical BID 2 weeks #45 06/06/23 %-0.05 % topical cream grams losartan 100 mg tablet 100 mg PO DAILY 90 days #90 tabs 06/06/23 nifedipine 30 mg tablet,extended 30 mg PO DAILY #90 tabs 06/09/23 release gemfibrozil 600 mg tablet (Lopid) 600 mg PO BID 90 days #180 tabs 09/02/23 simvastatin 40 mg tablet 40 mg PO DAILY Cholesterol 90 days 09/02/23 #90 tabs hydrochlorothiazide 50 mg tablet 50 mg PO DAILY #90 tabs 12/05/23 oseltamivir 75 mg capsule (Tamiflu) 75 mg PO BID 5 days #10 caps 02/10/24 Allergies Allergy/AdvReac Type Severity Reaction Status Date / Time Penicillins (PENICILLINS) Allergy Mild Verified 10/12/23 14:18 Sulfa (Sulfonamide Allergy Mild Verified 10/11/23 08:17 Antibiotics) (SULFA (SULFONAMIDE ANTIBIOTICS)) amlodipine (From [facility]) AdvReac Mild LE swelling Verified 10/11/23 08:17 PFSH [facility] Disclaimer: The information contained in this section may have been updated after the patient was seen, as this information can be updated by other users. Medical History Diastolic dysfunction Surgical History H/O foot surgery History of back surgery H/O hand surgery H/O knee surgery Family History Mother COPD (chronic obstructive pulmonary disease) Father Kidney failure Social History Smoking Status: Never smoker alcohol intake: current alcohol intake frequency: holidays/special occasions only substance use type: denies use current occupational status: employed and retired Travel in the last 8 weeks: None Have you lived/traveled outside US in past 30 days?: No Contact w/someone who lives/traveled outside US past 30 days?: No Exposure to someone with infectious disease in past 14 days?: No Do you have a fever (greater than 100.4 F or 38 C)?: Yes Have you tested positive for COVID-19: No Exposed to someone with COVID-19 in past 14 days?: No Do you have a sore throat?: No Do you have a cough?: Yes Do you have any weakness?: No Do you have any diarrhea?: No Are you experiencing any unusual bleeding?: No Do you have any muscle aches/pain?: No Do you have any abdominal pain?: No Are you experiencing loss of taste or smell?: No ROS Obtained: Yes All systems reviewed & no additional complaints except as documented and Yes Systems reviewed as appropriate & no additional complaints except as documented Constitutional Constitutional: Reports system reviewed and no additional complaints, except as documented, Reports as per HPI, Reports body ache, Reports chills, Reports fever(s) and Reports headache(s) ENT Ears, Nose, Mouth, and Throat: Reports system reviewed and no additional complaints, except as documented, Reports as per HPI, Reports headache(s), Reports sinus pain, Reports sinus pressure and Reports sore throat Cardiovascular Cardiovascular: Reports system reviewed and no additional complaints, except as documented and Reports as per HPI Respiratory Respiratory: Reports system reviewed and no additional complaints, except as documented and Reports as per HPI Gastrointestinal Gastrointestingal: Reports system reviewed and no additional complaints, except as documented and as per HPI Neurologic Neurologic: Reports headache(s) Physical Exam General General appearance: alert and in no apparent distress ENT ENT exam: Present mucous membranes moist Expanded ENT Exam Nose exam: Present sinus tenderness Throat exam: Present other (PND noted) Respiratory Respiratory exam: Present normal lung sounds bilaterally; Absent respiratory distress or wheezes Cardiovascular Cardiovascular exam: Present regular rate, normal rhythm and normal heart sounds Abdominal Exam Abdominal exam: Present soft and normal bowel sounds; Absent distention or tenderness Neurological Exam Neurological exam: Present alert, oriented X3 and normal gait Medical Decision Making Medical Records Screening: Per USPSTF and CDC recommendations, given the prevalence of disease in our region, it is our hospital?s policy to screen for HIV and viral Hepatitis for all patients aged 18 and over and those with ongoing risk factors. Yran Inquiry Pt receiving controlled substance: No Ryan was queried for this patient: No Lab Data Lab results reviewed: Yes I reviewed the patient's lab results.
[2024-02-10 12:01] LABS: UTC Influenza A Antigen Positive (Negative); UTC Influenza B Antigen Negative (Negative)
[2024-02-10 12:08] VITALS: BP 143/87; PULSE 76; RESP 19; TEMP 36.9; O2SAT 100
== END 2024-02-10 12:11 | disposition home or self-care (01) ==
PROVIDERS: Emergency Provider Nurse Practitioner; PCP Internal Medicine
DX: J10.1 Influenza due to other identified influenza virus with other respiratory manifestations (principal)
CPT/HCPCS: 87804; 99213; G0381

== ENCOUNTER 2024-07-17 10:34 | Outpatient (CLI) | payer MEDICARE, OTHER, SELFPAY ==
[2024-07-17 14:12] LABS: Alanine Aminotransferase 21 U/L (12-78); Albumin Level 4.6 g/dl (3.5-5.0); Albumin/Globulin Ratio 1.8 (1.1-1.8); Alkaline Phosphatase 82 U/L (38-126); Anion Gap 15.2 mEq/L (5-15); Aspartate Amino Transferase 25 U/L (17-59); Bilirubin,Total 0.7 mg/dl (0.2-1.3); Blood Urea Nitrogen 17 mg/dl (9-20); Calcium 9.4 mg/dl (8.4-10.2); Carbon Dioxide 25 mmol/L (22.0-30.0); Chloride 102 mmol/L (98-107); Estimated Glomerular Filt Rate 113 ml/min (>60); GFR (African American) 137 ML/MIN (>60); Globulin 2.5 g/dL (1.3-3.2); Glucose 90 mg/dl (74-100); Potassium 4.2 mmoL/L (3.5-5.1); Sodium 138 mmol/L (136-145); Total Protein,Serum 7.1 g/dl (6.3-8.2)
--- OUTSIDE RECORDS SUMMARY | 2024-07-18 11:19 | XMS_ITS | Data Portability ---
Author Organization [facility] [employer] [facility] Address [address] [place] [address] [address] [place] [address] Care Team Providers Care Basting Puller Name Role Phone NIRAVBENIDY Primary Care Provider Assessment Encounter Date Assessment Date Assessment LastModified by Organization Details LastModified Time 03/31/2020 03/31/2020 HPI: Mr. Hopkins is a 64yo male here for a second follow-up visit at 4 months following T12-L2 internal fixation using Viper Prime on 12/19/19 for L1 fracture, new AP lateral lumbar x-rays. Whether to leave the hardware in place and allowing those segments to fuse versus removing it was a conversation deferred to be had pending his recovery. Since surgery, his back pain has most entirely resolved, his lower extremity pain has almost entirely resolved, and his only complaint is having some residual numbness around his right hip which he understands may not improve for a year, and may not resolve. He walks 4-5 miles a day, has satisfactory mobility and flexibility, and is not taking any medication for pain. Denies weakness, tingling. PHYSICAL EXAM: Incisions look excellent, patient ambulating comfortably without complaint IMAGING: I have reviewed the images personally and read the radiologist's report. Fusion hardware looks excellent, fracture appears stable, same as previous x-rays with mild loss of vertebral height. ASSESSMENT: Fracture should be well-healed, the window for optimal removal of internal fixation hardware is 4-6 months. Clinically, he is doing extremely well. We discussed the procedure, expectations, and risks of removal versus the risks of leaving the hardware in and allowing him to fuse. He understands and he says he will follow whatever Dr. Suarez's recommendation is, but leans toward having the hardware out at this time. PLAN: At time of writing this note, Dr. Suarez is in quarantine and did not have a chance to discuss with this patient in person. We will review the case with Dr. Suarez and call the patient to discuss recommendations and the plan at that time. Patient understands and agrees. ADDENDUM 04/02/2020: I Spoke with Dr. Suarez. He is recommending T12-L2 removal Of hardware. I discussed the procedure, risks, benefits and expected postoperative course with the patient. He agrees to proceed. This will be an outpatient procedure. We will have our medical tech contact the patient. --Carlos merino Not available 04/02/2020 10:15:37 06/02/2020 06/02/2020 Mr. Hopkins is doing well after hardware removal status ORIF L1 burst fracture. I'm comfortable releasing him from my care at this time. He understands he can call at any time with questions or concerns. [email or web address] Not available 06/02/2020 08:44:52 Plan of Treatment Reminders Order Date Submit Date Provider Last Modified By Organization Details Last Modified Time Details Appointments None record ed. Lab None record ed. Referral None record ed. Procedures None record ed. Surgeries None record ed. Imaging None record ed. Medication Orders None record ed. Patient TargetsNo targets recorded. Patient InstructionsNo instructions recorded. Reason for Referral None Reported. Results Created Date Observation Date Name Description Value Unit Range Abnormal Flag Note LastModifiedBy Organization Detail LastModifiedTime 12/20/1912/19/2019 MRI, lumba r spine , w/o contr ast No observ ation record ed. BARCODE Not Available 2019 13:56:26 12/20/1912/19/2019 MRI, thora cic spine , w/o contr ast No observ ation record ed. [email or web address] Not Available 2019 15:18:54 12/20/1912/19/2019 MRI, lumba r spine , w/o contr ast No observ ation record ed. BARCODE Not Available 2019 16:14:55 12/20/1912/19/2019 MRI, thora cic spine , w/o contr ast No observ ation record ed. BARCODE Not Available 2019 16:17:17 01/21/20 01/21/2020 XR, thora cic spine , 2 view [facility] [facility] [address] [place] [address] [place] [address] Vaishali villegas Name: JALEEL villegas : [phone] Vaishali villegas 38 Orderi ng Provid er: PIERO CORTEZT EXAM DATE: 2019 EXAM: XR THORAC IC AP/LAT CLINIC AL INFORM ATION: Back pain. IMAGES PROVID ED: AP, and latera l views of the thorac ic spine. COMPAR YARELY: None. FINDIN GS AND IMPRES MIKAELA: Fusion hardwa re is seen at thorac olumba r and upper lumbar levels . 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 Verteb ral body height s are normal . Degene rative change s are seen at multip le levels . Interp reted By: Kaylyn Hollins MD Electr onical ly Signed By: Kaylyn Hollins MD on 020 10:47 AM [facility] Radiology [facility] [address] [place] [address], [phone], 02/07/2020 10:30:20 01/21/20 20 01/21/2020 XR, lumbo sacra l spine , 2 or 3 view [facility] [address] [place] [address] [place] [address] Vaishali villegas Name: JALEEL villegas : [phone] Vaishali villegas 36 Orderi ng Provid er: PIERO SUARZE EXAM DATE: 2019 EXAM: XR LUMBAR AP/LAT CLINIC AL INFORM ATION: Postop erativ e. IMAGES PROVID ED: AP, latera l, and coned- down views of the lumbar spine. COMPAR YARELY: None. FINDIN GS AND IMPRES MIKAELA: Spinal fusion is noted at T12-L2 level with pedicu lar screws and connec ting rods. Mild reduct ion in the height of L1 verteb ra is seen. Other verteb ral body height s are normal . Surgic al hardwa re is satisf actori ly placed . No eviden ce of loosen ing or infect ion is seen. Mild degene rative change s are seen at other levels . Interp reted By: Kaylyn Hollins MD Electr onical ly Signed By: Kaylyn Hollins MD on 020 10:49 AM [email or web address] [facility] Radiology [facility] [address] [place] [address], [phone], 02/07/2020 10:30:20 03/31/19 21 03/31/2020 XR, lumbo sacra l spine , 2 or 3 view [facility] [address] [place] [address], [place] [address] Patien t Name: JALEEL SAVAGE AEDevorah Patimayank villegas : [phone] Patien t 36 Orderi ng Provid er: PIERO SUAREZ EXAM DATE: 2020 EXAM: XR LUMBAR AP/LAT CLINIC AL INFORM ATION: Postop erativ e. IMAGES PROVID ED: AP, latera l, and coned- down views of the lumbar spine. COMPAR YARELY: None. FINDIN GS AND IMPRES MIKAELA: Spinal fusion is noted at T12-L2 level with pedicu lar screws and connec ting rods. Surgic al hardwa re is satisf actori ly placed . No eviden ce of loosen ing or infect ion is seen. Mild degene rative change s are seen at other levels . Interp reted By: Kaylyn Hollins MD Electr onical ly Signed By: Kaylyn Hollins MD on 021 12:45 PM [email or web address] [facility] Radiology [facility] [address] [place], [phone], 04/01/2020 18:46:32 05/03/19 21 05/02/2020 fluor oscop y (PROC ) No observ ation record ed. [email or web address] [facility] [address], [place], [address], 05/09/2020 11:27:09 Result Notes None recorded. Procedures Surgical History Date Name Laterality Status Provider Name and Address Organization Details Recorded Time INSTRUMENTATIO N, REMOVAL OF POSTERIOR SEGMENTAL (SURG) completed Alesha Reid [facility] 05/06/2020 10:26:57 Imaging Results None recorded. Procedure Notes None recorded. Medical Equipment None Reported. Allergies No known drug allergies Medications Name Sig Start Date Stop Date Status Note LastModified by Organization Details LastModified Time cyclobenzaprine 10 mg tablet Take 1 tablet 3 times a day by oral route as needed. active Not Available Not Available No t Available Percocet 7.5 mg-325 mg tablet Take 1 tablet every 6 hours by oral route as needed. 2020 active Not Available Not Available Not Avai lable triamcinolone acetonide 0.1 % topical cream active Not Available Not Availabl e Not Available simvastatin 40 mg tablet TAKE 1 TABLET BY MOUTH EVERY EVENING active Not Available Not Available No t Available nystatin 100,000 unit/gram topical cream active Not Available Not Availabl e Not Available gabapentin 300 mg capsule Take 1 capsule 3 times a day by oral route. active Not Available Not Available No t Available hydrochlorothia zide 25 mg tablet TAKE 1 TABLET BY MOUTH EVERY DAY active Not Available Not Available No t Available perindopril erbumine 8 mg tablet TAKE 1 & 1/2 TABLETS BY MOUTH DAILY active Not Available Not Available No t Available fenofibric acid (choline) 135 mg capsule,delayed release TAKE 1 CAPSULE BY MOUTH EVERY DAY active Not Available Not Available No t Available Vitals Date Recorded Body weight Heart rate Systolic blood pressure Diastolic blood pressure Provider Name and Address Organization Details Last Updated DateTime 03/31/2020 445022.91 g 74 /min 161 mm[Hg] 95 mm[Hg] Pam Payton [facility] 03/31/2020 11:17:37 Date Recorded Body weight Systolic blood pressure Diastolic blood pressure Provider Name and Address Organization Details Last Updated DateTime 06/02/2020 743935.91 g 140 mm[Hg] 80 mm[Hg] [facility] 06/02/2020 08:24:04 Date Recorded Systolic blood pressure Diastolic blood pressure Provider Name and Address Organization Details Last Updated DateTime 01/21/2020 132 mm[Hg] 84 mm[Hg] [facility] 11:34:37 Social History None recorded. Functional Status None recorded. Mental Status None recorded. Family History Nothing Reported. Medical History No medical history recorded. Past Encounters Encounter ID Performer Location Encounter Start Date Encounter Closed Date Diagnosis/Indication Diagnosis SNOMED-CT Code Diagnosis ICD10 Code Diagnosis Note [id number] CHARLIE SUAREZ MD SURGERY SCHEDULE [address] [place] [address] 12/31/2019 07:42:22 12/31/2019 08:12:35 [id number] CARLOS JENSEN PA-C [facility] [address] [place] [address] 01/21/2020 10:18:54 01/21/2020 11:48:42 Postoperative care [id number] Z48.89 64-year-ol d male status post T12-L2 percutaneo us ORIF Dr. Suarez on 12/19/2019 for an L1 burst fracture X-rays reviewed show stable placement of the hardware without evidence of loosening. Pleased with the patient's progress thus far. We will lift [place] frictions 2024 pounds lifting he may start to bend and twist a little bit but would recommend he avoid endrange motion. Still want him to take it easy for the next 6-8 weeks. We'll have him back in 2 months with another set of x-rays. Should he be doing well at that point we can discuss The pros and cons of removing the hardware. [id number] SONIA SANTORO PA-C [facility] [address] [place] [address] 03/31/2020 11:02:18 04/02/2020 10:37:11 Postoperative visit [id number] Z09 [id number] CHALRIE SUAREZ MD SURGERY SCHEDULE [address] [place] [address] 05/06/2020 08:56:27 05/06/2020 11:20:29 [id number] CHARLIE SUAREZ MD [facility] [address] [place] [address] 06/02/2020 08:16:58 06/02/2020 14:54:44 Postoperative care [id number] Z48.89 Health Concerns Section Related Observation LastModified by Organization Detai ls LastModified Time None Recorded Concern Status LastModified by Organization Details LastModified Time None Recorded Advance Directives Directive None Recorded Payers Insurance Date Sequence Insurance Name Policy Number Policy Kimble Covered Member ID Kimble Member ID Guarantor Name 05/30/2020 1 [employer] [id number] Ashley Hopkins [id number] Jaleel Hopkins Notes Date Note Type Note Provider Name and Address Organization Details Recorded Time 01/21/2020 text/html 64-year-old male status post T12-L2 percutaneous ORIF Dr. Suarez on 12/19/2019 for an L1 burst fracture presents to clinic for postoperative follow-up. The patient states he is doing quite well. Severe postoperative pain is much better. He has occasional soreness in the left flank and right hip but overall is pleased with his result. He is still working with physical therapy. He is walking several miles a day. He is pleased with his result thus far. CARLOS JENSEN PA-C [address] [place], [address], [facility] 01/21/2020 11:48:39 03/31/2020 text/html Mr. Hopkins is a 64yo male here for a second follow-up visit at 4 months following T12-L2 internal fixation using Viper Prime on 12/19/19, new AP lateral lumbar x-rays. Whether to leave the hardware in place and allowing those segments to fuse versus removing it was a conversation deferred to be had pending his recovery. Since surgery, his back pain has most entirely resolved, his lower extremity pain has almost entirely resolved, and his only complaint is having some residual numbness around his right hip which he understands may not improve for a year, and may not resolve. He walks 4-5 miles a day, has satisfactory mobility and flexibility, and is not taking any medication for pain. Denies weakness, tingling. CARLOS JENSEN PA-C [address] [place], [address], [facility] 04/02/2020 10:15:41 06/02/2020 text/html Mr. Hopkins is a 64-year-old gentleman status post removal of hardware after an L1 fracture. He is doing quite well with no pain. CHARLIE SUAREZ MD [address] [place], [address], [facility] 06/02/2020 08:45:02
== END 2024-07-17 23:59 | disposition home or self-care (01) ==
LOC: LAB.DROPOF 07-18 11:18
PROVIDERS: PCP Nurse Practitioner Family; Visit Provider Nurse Practitioner Family
DX: B35.1 Tinea unguium (principal)
CPT/HCPCS: 80053

== ENCOUNTER 2024-10-03 07:51 | Outpatient (CLI) | payer MEDICARE, OTHER, SELFPAY ==
--- OUTSIDE RECORDS SUMMARY | 2024-10-03 07:53 | XMS_ITS | Clinical Summary ---
Author Organization [facility] yste Address [address] [place] [address] Care Team Providers Care Anaesthetic Technician Name Role Phone RahatJcarlos marinelli Primary Care Provider + Medications Sod Picosulfate-Mag Ox-Cit Acd 10-3.5-12 MG-GM -GM/160ML solution Take 350 mL by mouth Take As Directed for 1 dose. 350 mL 04/30/2024 Active Social History Tobacco Use Types Packs/Day Years Used Date Smoking Tobacco: Never Assessed Abuse Screen Answer Date Recorded Unsafe at Home or Work/School Not on file Feels Threatened by Someone? Not on file 10/2022 Does Anyone Keep You from Co ntacting Others or Doint Things Outside the Home? Not on file 11/22/2022 Physical Sign of Abuse Present Not on file 1 Housing Stability Answer Date Recorded Current Living Arrangements Not on file 10/2022 Potentially Unsafe Housing Conditions Not on delmy e 11/22/2022 Family and Community Support Answer Juan e Recorded Help with Day-to-Day Activities Not on file 11/22/2022 Lonely or Isolated Not on file 11/22/2022 Employment Answer Date Recorded Do you want help finding or keeping work or a milind b? Not on file 11/22/2022 Disabilities Answer Date Recorded Concentrating, Remembering, or Making Decisions Difficulty Not on file 11/22/2022 Doing Errands Independently Difficulty Not on fi le 11/22/2022 Education Answer Date Recorded Help with school or training? Not on file Preferred Language Not on file 11/22/2022 Sex and Gender Information Value Date Recorded Sex Assigned at Not on file Legal Sex Male 1:17 PM EDT Gender Identity Not on file Sexual Orientation Not on file Plan of Treatment Health Maintenance Due Date Last Done Comments COLOGUARD 2002 COLON CANCER SCREENING 5 YEA R SIGMOIDOSCOPY 2002 CT COLONOGRAPHY 2002 FECAL OCCULT BLOOD TEST 2002 FIT Testing (1 year) 2002 TDAP/TD VACCINES (2 - Tdap) 04/18/2006 04/18/1996 Pneumococcal Vaccine 50+ (1 of 1 - PCV) 08/03/2007 ZOSTER VACCINE (1 of 2) 08/03/2007 ANNUAL PHYSICAL 12/25/2018 HEPATITIS C SCREENING 12/25/2018 AAA SCREEN ONCE 2022 COVID-19 Vaccine ( season) 2023 01/28/2021, 04/27/2020, 03/30/2020 INFLUENZA VACCINE 11/14/2024 12/20/2019 COLONOSCOPY 05/10/2034 05/10/2024, 01/16/2019 COLORECTAL CANCER SCREENING 05/10/2034 Procedures Procedure Name Priority Date/Time Associated Diagnosis Comments SCANNED - COLONOSCOPY 05/10/2024 from Last 3 Months or Most Recently Relevant to Health Maintenance Results * Colonoscopy, Scan (05/10/2024) Fuad Flower MD CHART REVIEW TABS Final Res ult from Last 3 Months or Most Recently Relevant to Health Maintenance Insurance MEDICARE A & B [employer] Care Teams Anaesthetic Technician Relationship Specialty Start Date End Date Jcarlos Giang DO [address] [place] [id number] PCP - General Internal Medicine 03/05/24
--- OUTSIDE RECORDS SUMMARY | 2024-10-03 07:53 | XMS_ITS | Encounter Summary ---
Author Organization [facility] Address [address] [place] [address] Care Team Providers Care Instructional Design Consultant Name Role Phone Jcarlos Giang Primary Care Provider + Encounter Details Date Type Department Care Team (Late st Contact Info) Description 05/14/2024 Results Follow-Up [facility] [id number] Fuad Flower MD [address] [place] [address] Social History Tobacco Use Types Packs/Day Years [...] on file Sexual Orientation Not on file documented as of this encounter Progress Notes * Janna Tee MA - 05/14/2024 3:31 PM EDT CALLED PATIENT AND ADVISED. PATIENT UNDERSTOOD. * Fuad Flower MD - 05/14/2024 2:54 PM EDT Please let Iglesia know he had adenomas. Follow-up in 5 years time is recommended documented in this encounter Plan of Treatment Not on file documented as of this encounter Visit Diagnoses Not on filedocumented in this encounter Care Teams Instructional Design Consultant Relationship Specialty Start Date End Date Jcarlos Giang DO [address] [place] [id number] PCP - General Internal Medicine 03/05/24 documented as of this encounter
[2024-10-03 08:41] LABS: Hematocrit 41.9 % (42.0-52.0); Hemoglobin 14.4 g/dL (14.1-18.0); Immature Granulocytes % 0.5 %; Mean Corpuscular HGB Conc 34.4 g/dL (31.8-35.4); Mean Corpuscular Hemoglobin 31.0 pg (27.0-31.2); Mean Corpuscular Volume 90.1 fl (80-94); Nucleated Red Blood Cells % 0 %; Platelet Count 256 K/mm3 (142-424); Red Blood Count 4.65 M/mm3 (4.60-6.20); Red Cell Distribution Width-SD 44.8 fL; White Blood Count 5.7 K/mm3 (4.8-10.8)
[2024-10-03 09:01] LABS: Albumin Level 4.5 g/dl (3.5-5.0)
[2024-10-03 09:02] LABS: Chloride 108 mmol/L (98-107); Potassium 4.1 mmoL/L (3.5-5.1); Sodium 141 mmol/L (136-145)
[2024-10-03 09:04] LABS: Alanine Aminotransferase 19 U/L (12-78); Anion Gap 11.1 mEq/L (5-15); Aspartate Amino Transferase 24 U/L (17-59); Bilirubin,Unconjugated 0.3 mg/dL (0.0-1.1); Blood Urea Nitrogen 20 mg/dl (9-20); Carbon Dioxide 26 mmol/L (22.0-30.0); Creatinine,Serum 0.70 mg/dl (0.66-1.25); Estimated Glomerular Filt Rate 112 ml/min (>60); GFR (African American) 136 ML/MIN (>60)
[2024-10-03 09:05] LABS: Alkaline Phosphatase 84 U/L (38-126); Bilirubin,Direct 0.3 mg/dl (0.0-0.4); Bilirubin,Indirect 0.2 mg/dL (0.0-0.9); Bilirubin,Total 0.5 mg/dl (0.2-1.3); Calcium 9.2 mg/dl (8.4-10.2); Cholesterol 162 mg/dl (140-200); Glucose 118 mg/dl (74-100); HDL Cholesterol 43 mg/dl (40-60); Magnesium 2.1 mg/dl (1.6-2.3); Total Protein,Serum 6.7 g/dl (6.3-8.2); Triglycerides 117 mg/dl (30-150)
[2024-10-03 09:22] LABS: Free T4 (Free Thyroxine) 1.15 ng/dl (0.78-2.19)
[2024-10-03 09:37] LABS: Thyroid Stimulating Hormone 2.27 uIU/mL (0.465-4.68)
== END 2024-10-03 23:59 | disposition home or self-care (01) ==
LOC: LAB 07:51
PROVIDERS: PCP Internal Medicine; Visit Provider Internal Medicine
DX: E78.1 Pure hyperglyceridemia (principal); I11.9 Hypertensive heart disease without heart failure; R94.31 Abnormal electrocardiogram [ECG] [EKG]; B35.1 Tinea unguium
CPT/HCPCS: 36415; 80048; 80061; 80076; 83735; 84439; 84443; 85025